=== PATIENT | female | born 1975 | race Caucasian/White ===

== ENCOUNTER → 2017-11-07 | Outpatient (CLI) | payer BC ==
--- NOTE | 2017-11-08 08:30 | MM ---
Reason for exam: screening (asymptomatic). Baseline mammogram. Physical Findings: Nurse did not find any significant physical abnormalities on exam. MG Screening Mammo w CAD Bilateral CC and MLO view(s) were taken. There are scattered fibroglandular densities. There is no discrete abnormality. These results were verbally communicated with the patient and result sheet given to the patient on 11/07/17. ASSESSMENT: Negative, BI-RAD 1 RECOMMENDATION: Routine screening mammogram of both breasts in 1 year.
== END | disposition home or self-care (01) ==
LOC: RADMAMWWP 07:57
PROVIDERS: ATTEND Family Medicine
DX: Z12.31 Encounter for screening mammogram for malignant neoplasm of breast (principal)
CPT/HCPCS: 77067

== ENCOUNTER → 2019-02-04 | Outpatient (CLI) | payer BC ==
--- NOTE | 2019-02-04 14:11 | MM ---
Reason for exam: screening (asymptomatic). Last mammogram was performed 1 year and 3 months ago. Physical Findings: A clinical breast exam by your physician is recommended on an annual basis and results should be correlated with mammographic findings. MG Screening Mammo w CAD Bilateral CC and MLO view(s) were taken. Prior study comparison: November 07, 2017, bilateral MG screening mammo w CAD. The breast tissue is heterogeneously dense. This may lower the sensitivity of mammography. There is chronic nodularity in the right breast. There is no discrete abnormality. ASSESSMENT: Negative, BI-RAD 1 RECOMMENDATION: Routine screening mammogram of both breasts in 1 year.
== END ==
LOC: RADMAMWWP 06:46
PROVIDERS: ATTEND Family Medicine
DX: Z12.31 Encounter for screening mammogram for malignant neoplasm of breast (principal)
CPT/HCPCS: 77067

== ENCOUNTER → 2020-06-02 | Outpatient (CLI) | payer OTHER ==
--- NOTE | 2020-06-03 08:57 | MM ---
Reason for exam: screening (asymptomatic). Last mammogram was performed 1 year and 4 months ago. Physical Findings: A clinical breast exam by your physician is recommended on an annual basis and results should be correlated with mammographic findings. MG Screening Mammo w CAD Bilateral CC and MLO view(s) were taken. Prior study comparison: February 04, 2019, bilateral MG screening mammo w CAD. November 07, 2017, bilateral MG screening mammo w CAD. There are scattered fibroglandular densities. There is chronic nodularity in the right breast. No significant changes when compared with prior studies. ASSESSMENT: Benign, BI-RAD 2 RECOMMENDATION: Routine screening mammogram of both breasts in 1 year.
== END | disposition home or self-care (01) ==
LOC: RADMAMWWP 07:17
PROVIDERS: ATTEND Family Medicine
DX: Z12.31 Encounter for screening mammogram for malignant neoplasm of breast (principal)
CPT/HCPCS: 77067

== ENCOUNTER → 2020-09-30 | Outpatient (CLI) | payer OTHER ==
--- NOTE | 2020-10-02 14:39 | US ---
EXAMINATION TYPE: US renal artery duplex complet DATE OF EXAM: 09/30/2020 COMPARISON: NONE CLINICAL HISTORY: I10 essential Hypertension. 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 Slight velocity elevation of right renal artery without elevated ratio. Left velocities appears wnl. IMPRESSION: There may be some slight narrowing without significant stenosis of the right renal artery based on ve locities.
--- NOTE | 2020-10-06 08:16 | ECHOF ---
Referral Reason:H93.3x9 H93.19 H91.90 MEASUREMENTS -------- HEIGHT: 162.6 cm WEIGHT: 78.9 kg BP: IVSd: 0.9 cm (0.6 - 1.1) LVIDd: 4.6 cm (3.9 - 5.3) LVPWd: 1.2 cm (0.6 - 1.1) IVSs: 1.3 cm LVIDs: 3.2 cm LVPWs: 1.5 cm LAESV Index (A-L): 23.90 ml/m Ao Diam: 3.0 cm (2.0 - 3.7) AV Cusp: 2.0 cm (1.5 - 2.6) LA Diam: 4.0 cm (2.7 - 3.8) MV EXCURSION: 13.883 mm (> 18.000) MV EF SLOPE: 64 mm/s (70 - 150) EPSS: 0.2 cm MV E Choco: 0.51 m/s MV DecT: 162 ms MV A Choco: 0.65 m/s MV E/A Ratio: 0.79 RAP: 5.00 mmHg RVSP: 17.86 mmHg TAPSE: 24.99 mm FINDINGS -------- Sinus rhythm. This was a technically good study. LV size, wall thickness and systolic function are normal, with an EF greater than 55%. The left kylah tricular size is normal. The right ventricle is normal in size. Normal LA size by volume 22+/-6 ml/m2. The right atrial size is normal. The aortic valve is trileaflet, and appears structurally normal. No aortic stenosis or regurgitation. Mild mitral regurgitation is present. Mild tricuspid regurgitation present. Right ventricular systolic pressure is normal at < 35 mmHg. There is no pulmonic regurgitation present. The aortic root size is normal. There is no pericardial effusion. CONCLUSIONS -------- 1. LV size, wall thickness and systolic function are normal, with an EF greater than 55%. 2. The left ventricular size is normal. 3. The right ventricle is normal in size. 4. Normal LA size by volume 22+/-6 ml/m2. 5. The right atrial size is normal. 6. Mild mitral regurgitation is present. 7. Mild tricuspid regurgitation present. 8. The aortic root size is normal. 9. There is no pericardial effusion. [employer]OD HEEL CEMENTER: Jovana Morgan RDCS
== END | disposition home or self-care (01) ==
LOC: RADUSWWP 06:58
PROVIDERS: ATTEND Family Medicine
DX: I08.1 Rheumatic disorders of both mitral and tricuspid valves (principal)
CPT/HCPCS: 93306; 93975

== ENCOUNTER → 2020-11-09 | Outpatient (CLI) | payer OTHER ==
--- NOTE | 2020-11-09 18:42 | CT ---
EXAMINATION TYPE: CT sinus wo con DATE OF EXAM: 11/09/2020 COMPARISON: None HISTORY: Acute sinusitis, ear infections, vertigo CT DLP: 440.7 mGycm Automated exposure control for dose reduction was used. Images were obtained from the bottom of the maxilla to the top of the frontal sinuses without contras t. There is normal aeration of the maxillary ethmoid sphenoid and frontal sinuses. I see no bony destruc tive process. There is normal aeration of the mastoid sinuses. There is normal aeration of the epitym panic recess bilaterally. The external auditory canals appear normal. Internal auditory canals appear normal. There is no evidence of cerebellopontine angle mass. I see no bony destructive process. The maxilla is intact. Orbital margins are intact. There is no evidence of retro-orbital mass. There is n ormal aeration of the middle ear cavities. IMPRESSION: Normal CT scan of the sinuses.
== END | disposition home or self-care (01) ==
LOC: RADCTMAIN 18:11
PROVIDERS: ATTEND Family Medicine
DX: J01.90 Acute sinusitis, unspecified (principal)
CPT/HCPCS: 70486

== ENCOUNTER → 2023-05-27 | Outpatient (CLI) | payer OTHER ==
[2023-05-27 20:06] LABS: HCT 39.6 % (37.2-46.3); HGB 13.5 d/dL (12.0-15.0); MCH 29.7 pg (27.0-32.0); MCHC 34.1 d/dL (32.0-37.0); Mean Platelet Volume 10.2 FL (9.5-12.2); NRBC Per 100 WBC 0 X 10*3/uL (0.00-0.01); Platelet Count 390 X 10*3/uL (140-440); RBC 4.55 X 10*6/uL (4.10-5.20); RDW 13.6 % (11.5-14.5); WBC 13.42 X 10*3/uL (4.50-10.00)
[2023-05-28 02:59] LABS: Blood Urea Nitrogen 15.7 mg/dL (9.0-27.0); Carbon Dioxide 24.7 mmol/L (21.6-31.8); Chloride 99 mmol/L (96-109); Potassium 2.8 mmol/L (3.5-5.5); Sodium 140 mmol/L (135-145)
== END | disposition home or self-care (01) ==
LOC: LABPAT 16:02
PROVIDERS: ATTEND Internal Medicine Interventional Cardiology
DX: Z01.812 Encounter for preprocedural laboratory examination (principal); Q21.10 Atrial septal defect, unspecified
CPT/HCPCS: 80051; 82565; 84520; 85027

== ENCOUNTER 2023-05-29 12:19 | Day surgery (SDC) | payer OTHER ==
[~2023-05-29 12:19] MED LIST: ALPRAZolam 0.25 MG TAB PO PRN; ALPRAZolam 0.5 MG TAB PO PRN; ASPIRIN 325 MG TAB PO STA; ATORVASTATIN 80 MG TAB PO STA; HEPARIN SODIUM,PORCINE (1 ML) 2,500 UNIT in SODIUM CHLORIDE 0.9% 250 ML IRRIGATION PRN; HEPARIN SODIUM,PORCINE 10,000 UNIT in SODIUM CHLORIDE 0.9% 1,000 ML IRRIGATION PRN; NITROGLYCERIN SL TABS 0.4 MG TAB SUBLINGUAL PRN
[2023-05-29] MEDS ORDERED: SODIUM CHLORIDE 0.9% 1,000 ML IV ONE (12:41)
[2023-05-29 13:14] VITALS: TEMP 98.1
[2023-05-29] MEDS ORDERED: ASPIRIN 325 MG TAB PO ONE (13:17)
[2023-05-29] MEDS ORDERED: LIDOCAINE 1% INJ 10MG/ML (20 ML MDV) ONE (14:08)
[2023-05-29] MEDS ORDERED: HEPARIN SODIUM 1,000 UN/ML (10ML VL) ONE (14:11)
[2023-05-29] MEDS ORDERED: MIDAZOLAM 2 MG/2 ML VIAL IVP ONE ×2 (14:25→15:03)
[2023-05-29] MEDS ORDERED: LIDOCAINE 1% INJ 10MG/ML (20 ML MDV) SQ ONE ×2 (14:27→14:28)
[2023-05-29] MEDS ORDERED: fentaNYL (PF) 50 MCG/ML 2 ML AMP ONE (14:32)
[2023-05-29] MEDS ORDERED: HEPARIN SODIUM 1,000 UN/ML (10ML VL) IVP ONE (14:34)
[2023-05-29] MEDS ORDERED: fentaNYL (PF) 50 MCG/ML 2 ML AMP IVP ONE ×3 (14:35)
[2023-05-29 14:46] LABS: Basophils # (A) 0.1 k/uL (0-0.2); Basophils % (A) 0 %; Eosinophils # (A) 0.2 k/uL (0-0.7); Eosinophils % (A) 2 %; HCT 32.6 % (34.0-46.0); HGB 11.6 gm/dL (11.4-16.0); Lymphocytes % (A) 24 %; MCH 30.9 pg (25.0-35.0); MCHC 35.5 g/dL (31.0-37.0); Mean Platelet Volume 7.7; Monocytes # (A) 0.5 k/uL (0-1.0); Monocytes % (A) 4 %; Neutrophils # (A) 8.3 k/uL (1.3-7.7); Neutrophils % (A) 68 %; Platelet Count 285 k/uL (150-450); RBC 3.75 m/uL (3.80-5.40); RDW 13.9 % (11.5-15.5); WBC 12.2 k/uL (3.8-10.6)
[2023-05-29 15:09] LABS: ALT 22 U/L (4-34); AST 23 U/L (14-36); African American GFR (CKD) >90 (>60 ml/min/1.73 sqM); Albumin 3.2 g/dL (3.5-5.0); Alkaline Phosphatase 65 U/L (38-126); Anion Gap 8 mmol/L; Blood Urea Nitrogen 16 mg/dL (7-17); Calcium 8.3 mg/dL (8.4-10.2); Carbon Dioxide 27 mmol/L (22-30); Chloride 101 mmol/L (98-107); Glucose 86 mg/dL (74-99); Non-African American GFR(CKD) >90 (>60 ml/min/1.73 sqM); Sodium 136 mmol/L (137-145); Total Bilirubin 0.6 mg/dL (0.2-1.3); Total Protein 6.3 g/dL (6.3-8.2)
[2023-05-29 15:10] LABS: HCG,Qualitative Serum Not Detected
[2023-05-29 15:19] LABS: Potassium 2.5 mmol/L (3.5-5.1)
[2023-05-29] MEDS ORDERED: POTASSIUM CHLORIDE ER 20 MEQ TAB.ER PO STA (15:20)
[2023-05-29] MEDS ORDERED: RX INFO: IV CONTRAST WAS GIVEN 1 EACH MISC MISCELLANE PRN (15:34)
[2023-05-29] MEDS ORDERED: SODIUM CHLORIDE 0.9% 1,000 ML IV SCH (15:45)
[2023-05-29] MEDS ORDERED: POTASSIUM CHLORIDE 20 MEQ/100 ML BAG IVPB ONE (16:10)
--- NOTE | 2023-05-29 18:06 | P.PCN ---
Date of Procedure: 05/29/23 Operative Findings: Intracardiac Echocardiogram Report Performing physician David Mo MD Procedure performed 1. Intracardiac echocardiogram (ICE) 2. Agitated saline injection in the right atrium 3. Ultrasound guided access of the right common femoral vein 2 Indication This is a 47-year-old female patient who sees Dr. Chávez who was diagnosed recently with TIA. She underwent transesophageal echocardiogram at [facility] and there was a concern about patent foramen ovale. The patient was referred for PFO closure Approach Right common femoral vein Complications None Level of sedation Moderate with sedation length of 45 minutes Procedure description After obtaining an informed consent the patient was brought to the cardiac Roll Handler. The right common femoral vein was cannulated using micropuncture technique under ultrasound guidance and a micropuncture wire passed easily than epilate inferiorly the micropuncture sheath then I did exchange the micropuncture sheet overall 3 5 wire into an 8 [place] 11 cm sheath. I accessed the right common femoral vein 2. Subsequently anticoagulation was initiated using heparin with continuous ACT monitoring throughout the procedure. After that and under fluoroscopy guidance intracardiac echo probe was advanced under fluoroscopy guidance to the right atrium. We did interrogate the interatrial septum using 2D echo as well as color Doppler. Interatrial septum appeared to be intact with no evidence of aneurysmal changes or hyperdynamic changes. No color flow was identified across the septum. Emptying across syncope patent foramen ovale using 035 J-wire and subsequently all 3 5 glide wire was unsuccessful in spite of using multipurpose catheter as well as JR4 catheter. Because we had a concern that there is no PFO we did bubble study with agitated saline with injection right on the interatrial septum in the right atrium and that showed no evidence of patent foramen ovale. A contrasted study/bubble study was performed it twice. At that point we decided to stop it. The procedure was completed with no complication Conclusion No evidence of patent foramen ovale using color Doppler or agitated saline injection in the right atrium with intracardiac echocardiogram
[2023-05-29] MEDS: SODIUM CHLORIDE 0.9% 1,000 ML in EMPTY BAG 1 BAG IV SCH ×2 (18:51→18:52)
[2023-05-29 21:04] VITALS: BP 103/70; PULSE 73; RESP 16
== END 2023-05-29 22:39 | disposition home or self-care (01) ==
LOC: CATHCVL 12:19 → 6NMEDSUR 15:32 → CATHCVL 22:39
PROVIDERS: ATTEND Internal Medicine Interventional Cardiology
DX: G45.9 Transient cerebral ischemic attack, unspecified (principal); I10 Essential (primary) hypertension; E78.5 Hyperlipidemia, unspecified; Z88.0 Allergy status to penicillin; Z88.8 Allergy status to other drugs, medicaments and biological substances; Q21.12 Patent foramen ovale; Z86.73 Personal history of transient ischemic attack (TIA), and cerebral infarction without residual deficits; Z79.01 Long term (current) use of anticoagulants; Z79.899 Other long term (current) drug therapy
CPT/HCPCS: 93580; 93662; 80053; 85025; 84703; C1769 ×4; C1894; C1759; J2250; J3480; J2001; J3010; J1644; 36012; 37252